=== PATIENT | female | born 1985 | race Caucasian/White ===

== ENCOUNTER 2020-05-10 12:34 | Emergency (ER) | payer OTHER ==
[~2020-05-10] VITALS: Ht 177.8 cm; Wt 95.3 kg
[2020-05-10] MEDS ORDERED: IOHEXOL 300 MG/ML 100ML BOTTLE IJ ONE (14:06)
[2020-05-10] MEDS ORDERED: KETOROLAC TROMETH 30 MG/ML 1ML VIAL IV ONE (14:45)
[2020-05-10] MEDS ORDERED: MORPHINE SULFATE INJECTION 2 MG/ML SYRG ONE ×2 (17:31→17:39)
[2020-05-10] MEDS ORDERED: ONDANSETRON HCL 4 MG/2 ML VIAL ONE (17:31)
[2020-05-10] MEDS ORDERED: MORPHINE SULFATE 4 MG/ML SYR/VIAL IV ONE (18:00)
[2020-05-10] MEDS ORDERED: ONDANSETRON HCL 4 MG/2 ML VIAL IV ONE (18:00)
[2020-05-10 18:04] VITALS: BP 114/87
== END 2020-05-10 18:37 | disposition home or self-care (01) ==
LOC: ER 12:34 → EDBD 12:34 → ER 18:37
DX: S52.531A Colles' fracture of right radius, initial encounter for closed fracture (principal); S63.065A Dislocation of metacarpal (bone), proximal end of left hand, initial encounter; X58.XXXA Exposure to other specified factors, initial encounter; Y93.89 Activity, other specified; Y92.89 Other specified places as the place of occurrence of the external cause; Y99.8 Other external cause status
CPT/HCPCS: 29125; 71260; 73100; 73120; 73560; 74177; 96374; 96375; 99285; J1885; J2270; J2405; Q9967